=== PATIENT | male | born 1965 | race Caucasian/White ===

== ENCOUNTER 2023-05-22 01:45 | Day surgery (SDC) | payer OTHER, SELFPAY ==
[2023-04-26 09:17] VITALS: BMI 29.8
--- NOTE | 2023-05-19 08:36 | SUR.PREOP ---
Patient called regarding upcoming procedure. Reviewed preop instructions, appointment times, and procedure prep.
--- NOTE | 2023-05-19 14:43 | PM.HPGS ---
History of Present Illness History of Present Illness Consent: Risks, benefits, and alternatives have been discussed and questions answered. Patient agrees to proceed with procedure. Chief complaint: neoplasm screening Narrative: Klever Beyer is a 57 year old male Referred for colon cancer screening. Review of Systems Review of Systems: All systems reviewed & are unremarkable except as noted in HPI and below PMFSH Social History Social History Smoking status: Unknown if ever smoked Alcohol intake: current Drinks per week: 3 Substance use: never Substance use type: does not use Living arrangements: with family Spiritual care concerns: No Meds Home Medications and Allergies Home Medications Medication Instructions Recorded Confirmed Type dextroamphetamine-amphetamine ER 25 mg PO DAILY 04/26/23 04/26/23 History 25 mg 24hr capsule,extend release nadolol 20 mg tablet 20 mg PO DAILY 04/26/23 04/26/23 History sildenafil 100 mg tablet 100 mg PO PRN PRN Erectile 04/26/23 04/26/23 History Dysfunction spironolactone 25 mg tablet 25 mg PO DAILY 04/26/23 04/26/23 History Allergies Allergy/AdvReac Type Severity Reaction Status Date / Time niacin AdvReac Flushing Verified 05/22/23 09:02 Exam Const: General: alert Orientation/consciousness: patient oriented x3 Resp: Auscultation: clear to auscultation bilaterally Cardio: Rhythm: regular rhythm GI: GI Palp: Yes Soft to palpation and No Tenderness to palpation present (GI) Neuro: General: patient oriented x3 Assessment and Plan Assessment and plan (1) Colon cancer screening: Code(s): Z12.11 - Encounter for screening for malignant neoplasm of colon Status: Acute Assessment and Plan: Colonoscopy with possible biopsy or polypectomy or cautery or injection of substances.
[2023-05-22 09:03] VITALS: BP 152/82; PULSE 88; RESP 20; TEMP 36.6; O2SAT 98
[2023-05-22] MEDS: LACTATED RINGERS 1,000 ML 150 ML IV CONT (09:13)
--- NOTE | 2023-05-22 09:22 | P.PNAN_ITS ---
Anes - Initial Pre Proc Eval Procedure: Operation Date: 05/22/23 09:30 Proposed Procedures p Screening Colonoscopy - Kody Degroot MD Date/Time: 05/22/23 09:22 Surgeon: Kody Degroot MD Pre Op Diagnosis: neoplasm screening Patient Data Age: 57 Gender: M Height: 1.78 m Weight: 95.1 kg Last Vital Signs Temp 97.9 F 05/22/23 09:03 Pulse 88 05/22/23 09:03 Resp 20 05/22/23 09:03 BP 152/82 H 05/22/23 09:03 Pulse Ox 98 05/22/23 09:03 O2 Del Method Room Air 05/22/23 09:03 Allergies Allergy/AdvReac Type Severity Reaction Status Date / Time niacin AdvReac Flushing Verified 05/22/23 09:02 Home Medications Medication Instructions Recorded Confirmed Type dextroamphetamine-amphetamine ER 25 mg PO DAILY 04/26/23 04/26/23 History 25 mg 24hr capsule,extend release nadolol 20 mg tablet 20 mg PO DAILY 04/26/23 04/26/23 History sildenafil 100 mg tablet 100 mg PO PRN PRN Erectile 04/26/23 04/26/23 History Dysfunction spironolactone 25 mg tablet 25 mg PO DAILY 04/26/23 04/26/23 History Patient hx anesthesia problems: none Family hx anesthesia problems: none Results Review: All pre-operative results and documents have been reviewed as part of the pre- operative evaluation. PMFSH Social History Social History Smoking status: Unknown if ever smoked Alcohol intake: current Drinks per week: 3 Substance use: never Substance use type: does not use Living arrangements: with family Spiritual care concerns: No Anes - Eval Final PreProcedure Day of Procedure 05/22/23 09:22 Patient weight: normal Heart: regular rate and rhythm Lungs: clear to auscultation Airway: Mallampati scale class II Neurological: alert and oriented Last oral intake: >/= 8 hours ASA classification: III Emergent: no Anesthetic plan: proceed Anesthesia type and monitoring: general GIVS and standard monitoring Results Review: All pre-operative results and documents have been reviewed as part of the pre- operative evaluation. Informed Consent: The patient's anesthetic plan and its attendant risks and benefits were discussed with the patient/family/POA. Questions were solicited and answers provided to the satisfaction of the patient/family/POA.
--- NOTE | 2023-05-22 09:24 | P.PNAN_ITS ---
Anes - Initial Pre Proc Eval Procedure: Operation Date: 05/22/23 09:30 Proposed Procedures p Screening Colonoscopy - Kody Degroot MD Date/Time: 05/22/23 09:24 Surgeon: Kody Degroot MD Pre Op Diagnosis: neoplasm screening Patient Data Age: 57 Gender: M Height: 1.78 m Weight: 95.1 kg Last Vital Signs Temp 97.9 F 05/22/23 09:03 Pulse 88 05/22/23 09:03 Resp 20 05/22/23 09:03 BP 152/82 H 05/22/23 09:03 Pulse Ox 98 05/22/23 09:03 O2 Del Method Room Air 05/22/23 09:03 Allergies Allergy/AdvReac Type Severity Reaction Status Date / Time niacin AdvReac Flushing Verified 05/22/23 09:02 Home Medications Medication Instructions Recorded Confirmed Type dextroamphetamine-amphetamine ER 25 mg PO DAILY 04/26/23 04/26/23 History 25 mg 24hr capsule,extend release nadolol 20 mg tablet 20 mg PO DAILY 04/26/23 04/26/23 History sildenafil 100 mg tablet 100 mg PO PRN PRN Erectile 04/26/23 04/26/23 History Dysfunction spironolactone 25 mg tablet 25 mg PO DAILY 04/26/23 04/26/23 History Patient hx anesthesia problems: none Family hx anesthesia problems: none Results Review: All pre-operative results and documents have been reviewed as part of the pre- operative evaluation. PMFSH Social History Social History Smoking status: Unknown if ever smoked Alcohol intake: current Drinks per week: 3 Substance use: never Substance use type: does not use Living arrangements: with family Spiritual care concerns: No Anes - Eval Final PreProcedure Day of Procedure 05/22/23 09:24 Patient weight: normal Heart: regular rate and rhythm Lungs: clear to auscultation Airway: Mallampati scale class II Neurological: alert and oriented Last oral intake: >/= 8 hours ASA classification: III Emergent: no Anesthetic plan: proceed Anesthesia type and monitoring: general GIVS and standard monitoring Results Review: All pre-operative results and documents have been reviewed as part of the pre- operative evaluation. Informed Consent: The patient's anesthetic plan and its attendant risks and benefits were discussed with the patient/family/POA. Questions were solicited and answers provided to the satisfaction of the patient/family/POA.
[2023-05-22 09:48] VITALS: BP 121/71; PULSE 65; RESP 18; O2SAT 98
[2023-05-22 10:08] VITALS: BP 135/77; PULSE 65; RESP 18; O2SAT 95
[2023-05-22 10:12] VITALS: BP 146/85; PULSE 67; RESP 20; O2SAT 99
== END 2023-05-22 10:23 | disposition home or self-care (01) ==
PROVIDERS: PCP Family Medicine; Visit Provider Internal Medicine Gastroenterology
PROC: 0DJD8ZZ Inspection of Lower Intestinal Tract, Via Natural or Artificial Opening Endoscopic (ICD-10-PCS; CPT 45378; principal; 2023-05-22 09:30)
DX: Z12.11 Encounter for screening for malignant neoplasm of colon (principal); K63.5 Polyp of colon; K64.8 Other hemorrhoids; K57.30 Diverticulosis of large intestine without perforation or abscess without bleeding
CPT/HCPCS: 45385; 45382; 88305; J2704; J7120